=== PATIENT | female | born 1970 | race Caucasian/White ===

== ENCOUNTER 2016-08-18 13:57 | Emergency (ER) | payer OTHER, MEDICAID ==
[~2016-08-18] VITALS: Ht 162.6 cm; Wt 68.0 kg
[~2016-08-18 13:57] MED LIST: APAP/BUTALBITAL1 TA1 PO; CIPRO 500MG TA500 MG PO; FLEXERIL10 MG PO; IMITREX100 MG PO; LORTAB 10/3251 TAB PO; LORTAB 5/500 501 TAB PO; MEDROL 4MG. DOSE4 MG PO; PHENERGAN 25MG.25 M1 PO; POTASSIUM CHLO20 ME4 PO; PYRIDIUM 200MG200 MG PO
[2016-08-18 14:18] LABS: URINE BILIRUBIN - DIPSTICK SMALL (NEG)
[2016-08-18 14:19] LABS: URINE BLOOD TRACE (NEG)
[2016-08-18] MEDS ORDERED: BACTRIM DS 8001 TA1 PO (14:37)
--- NOTE | 2016-08-18 14:38 | Urgent Treatment Center Report ---
History of Present Issue Date/Time Seen by Provider 08/18/16 1421 Visit Reason Pt arrived:Walked Presenting Problem:PT C/O PAIN IN BLADDER AREA AND LOWER BACK. HAVING TROUBLE URINATING Location if Accident: Onset of symptoms date/time:/ or onset unknown for:MEDICAL HX UNKNOWN Have you (or family members/close friends) recently traveled outside the [place]? N If Yes, where/when: Have you had exposure to infectious disease within the past month? TB? Other? Specify: c/o bladder pressure, dysuria, low back pain, worsening x 2 weeks. Hasn't taken or tried anything for symptoms. Hx of UTIs and this feels similiar. Last UTI > 3 months ago. Denies fevers, + chills. Normal appetite. Denies urine odor but darker than typical. No vaginal discharge. + smoker. Source patient Exam Limitations no limitations ALLERGIES Coded Allergies: metronidazole (Severe, 01/01/16) Home Medications Reported Medications No Known Home Medications History Medical History General CAD? No Angina: No [place]: No Hypertension? No Hyperlipidemia? Yes CHF? No DVT? No PE? No COPD? No Asthma? Yes Anemia? No GERD? No Gastric ulcers? No GI Bleed? No Hernia? No Thyroid Problems? No Hypothyroidism? No CVA? No Seizures? No Diabetes? No Renal Insuffiency? No UTI? No Stones? No BPH? No GB Disease: Yes Nephritic Syndrome? No Asplenia? No Hepatitis? No Sickle Cell Disease? No Arthritis? No Migraines? No Cataracts? No Glaucoma? No MRSA? No HIV? No TB? No Anxiety? No Depression? No Cancer? No More? No Immunization HX DT/Tetanus 1-4 YRS Flu [id number] Pneumonia NEVER Surgical Hx Previous Surgery?Y TUBAL DIGANOSTIC LAP GALL BLADDER APPENDECTOMY DILATION OF URETHRA RIGHT HIP REPLACEMENT [employer] Hx LMP N/A Family History Family HX Diabetes Yes CAD Yes Hypertension Yes Hyperlipidemia Yes Cancer Yes TB No Social History Smoking Hx Smoker: Current Every Day Smoker Tobacco: Yes Type Cigarettes Packs/day < 1 Pack Alcohol Alcohol: No Review of Systems All Other Systems Reviewed and Negative Constitutional see HPI Gastrointestinal denies abdominal pain, denies diarrhea, nausea, denies vomiting Genitourinary see HPI. Physical Exam Vital Signs Vital Signs Date Time Temp Pulse Resp B/P Pulse O2 O2 Flow FiO2 Ox Delivery Rate 08/18 1439 98.8 86 16 155/80 98 08/18 1406 98.8 86 16 155/80 98 General Appearance normal appearance, no apparent distress Respiratory Status No: respiratory distress. Lung Sounds posterior: normal breath sounds. bilateral: normal breath sounds. Cardiovascular regular rate/rhythm, no murmur Gastrointestinal non tender, soft, hyperactive Back no CVA tenderness, nontender on exam, full ROM Neurologic alert Medical Decision Making LABS/Meds/Orders Pt receiving controlled substance in ED? No Results/Orders Laboratory Tests 08/18/16 1414: Urine Color YELLOW, Urine Appearance Clear, Urine pH 5.5, Ur Specific [place] 1.030, Urine Protein 30, Urine Ketones TRACE H, Urine Blood TRACE H, Urine Nitrate NEGATIVE, Urine Bilirubin SMALL, Urine Urobilinogen 0.2, Ur Leukocyte Esterase NEGATIVE, Urine Glucose NEGATIVE Orders Procedure Date/time Status [facility] URINE DIPSTICK 08/18 1414 Complete Departure Departure Time of Disposition 1428 Disposition DC Home or Self Care(routine) Clinical Impression Primary Impression: Microscopic hematuria Secondary Impressions: DYSURIA Condition STABLE Referrals ZENY VU APRN Enc to find primary care provider but in the meantime, FU [facility] in 10-14 days for repeat U/A. If hematuria remains, will plan to refer to Dr. Stout. Patient Instructions DI for Hematuria Additional Instructions Increase fluids (water, juice) Complete antibiotics even if symptoms resolve. FU immediately for new or worsening symptoms. Discussed urine cx. Pt unable to urinate again for specimen. Discharge Counseling Counseled pt/family regarding diagnosis, test results, medications/RX, home care, follow up needs Prescriptions Current Visit Scripts SULFAMETHOXAZOLE W/TRIMETHOPRI (Bactrim Ds Tab) 1 TABLET PO BID #14 TAB at 1440
--- NOTE | 2016-08-18 14:38 | Urgent Treatment Center Report ---
History of Present Issue Date/Time Seen by Provider 08/18/16 1421 Visit Reason Pt arrived:Walked Presenting Problem:PT C/O PAIN IN BLADDER AREA AND LOWER BACK. HAVING TROUBLE URINATING Location if Accident: Onset of symptoms date/time:/ or onset unknown for:MEDICAL HX UNKNOWN Have you (or family members/close friends) recently traveled outside the [place]? N If Yes, where/when: Have you had exposure to infectious disease within the past month? TB? Other? Specify: c/o bladder pressure, dysuria, low back pain, worsening x 2 weeks. Hasn't taken or tried anything for symptoms. Hx of UTIs and this feels similiar. Last UTI > 3 months ago. Denies fevers, + chills. Normal appetite. Denies urine odor but darker than typical. No vaginal discharge. + smoker. Source patient Exam Limitations no limitations ALLERGIES Coded Allergies: metronidazole (Severe, 01/01/16) Home Medications Reported Medications No Known Home Medications History Medical History General CAD? No Angina: No [place]: No Hypertension? No Hyperlipidemia? Yes CHF? No DVT? No PE? No COPD? No Asthma? Yes Anemia? No GERD? No Gastric ulcers? No GI Bleed? No Hernia? No Thyroid Problems? No Hypothyroidism? No CVA? No Seizures? No Diabetes? No Renal Insuffiency? No UTI? No Stones? No BPH? No GB Disease: Yes Nephritic Syndrome? No Asplenia? No Hepatitis? No Sickle Cell Disease? No Arthritis? No Migraines? No Cataracts? No Glaucoma? No MRSA? No HIV? No TB? No Anxiety? No Depression? No Cancer? No More? No Immunization HX DT/Tetanus 1-4 YRS Flu [id number] Pneumonia NEVER Surgical Hx Previous Surgery?Y TUBAL DIGANOSTIC LAP GALL BLADDER APPENDECTOMY DILATION OF URETHRA RIGHT HIP REPLACEMENT [employer] Hx LMP N/A Family History Family HX Diabetes Yes CAD Yes Hypertension Yes Hyperlipidemia Yes Cancer Yes TB No Social History Smoking Hx Smoker: Current Every Day Smoker Tobacco: Yes Type Cigarettes Packs/day < 1 Pack Alcohol Alcohol: No Review of Systems All Other Systems Reviewed and Negative Constitutional see HPI Gastrointestinal denies abdominal pain, denies diarrhea, nausea, denies vomiting Genitourinary see HPI. Physical Exam Vital Signs Vital Signs Date Time Temp Pulse Resp B/P Pulse O2 O2 Flow FiO2 Ox Delivery Rate 08/18 1439 98.8 86 16 155/80 98 08/18 1406 98.8 86 16 155/80 98 General Appearance normal appearance, no apparent distress Respiratory Status No: respiratory distress. Lung Sounds posterior: normal breath sounds. bilateral: normal breath sounds. Cardiovascular regular rate/rhythm, no murmur Gastrointestinal non tender, soft, hyperactive Back no CVA tenderness, nontender on exam, full ROM Neurologic alert Medical Decision Making LABS/Meds/Orders Pt receiving controlled substance in ED? No Results/Orders Laboratory Tests 08/18/16 1414: Urine Color YELLOW, Urine Appearance Clear, Urine pH 5.5, Ur Specific [place] 1.030, Urine Protein 30, Urine Ketones TRACE H, Urine Blood TRACE H, Urine Nitrate NEGATIVE, Urine Bilirubin SMALL, Urine Urobilinogen 0.2, Ur Leukocyte Esterase NEGATIVE, Urine Glucose NEGATIVE Orders Procedure Date/time Status [facility] URINE DIPSTICK 08/18 1414 Complete Departure Departure Time of Disposition 1428 Disposition DC Home or Self Care(routine) Clinical Impression Primary Impression: Microscopic hematuria Secondary Impressions: DYSURIA Condition STABLE Referrals ZENY VU APRN Enc to find primary care provider but in the meantime, FU [facility] [place] in 10-14 days for repeat U/A. If hematuria remains, will plan to refer to Dr. Stout. Patient Instructions DI for Hematuria Additional Instructions Increase fluids (water, juice) Complete antibiotics even if symptoms resolve. FU immediately for new or worsening symptoms. Discussed urine cx. Pt unable to urinate again for specimen. Discharge Counseling Counseled pt/family regarding diagnosis, test results, medications/RX, home care, follow up needs Prescriptions Current Visit Scripts SULFAMETHOXAZOLE W/TRIMETHOPRI (Bactrim Ds Tab) 1 TABLET PO BID #14 TAB at 1444
[2016-08-18 14:39] VITALS: BP 155/80
[2016-08-24] MEDS ORDERED: LAMICTAL 100 M100 MG PO (12:32)
== END 2016-08-18 14:40 | disposition home or self-care (01) ==
LOC: UTC 13:57
PROVIDERS: Nurse Practitioner Family
DX: R31.29 Other microscopic hematuria (principal); R30.0 Dysuria; Z72.0 Tobacco use

== ENCOUNTER → 2016-12-08 | Outpatient (CLI) | payer MEDICAID ==
[~2016-12-08] MED LIST changes: +BACTRIM DS 8001 TA1 PO; +LAMICTAL 100 M100 MG PO; +PYRIDIUM100 M2 PO
== END ==
LOC: LAB 10:55
DX: N89.8 Other specified noninflammatory disorders of vagina (principal)

== ENCOUNTER → 2017-06-23 | Outpatient (CLI) | payer MEDICAID ==
[~2017-06-23] MED LIST changes: +IBUPROFEN800 MG PO
== END ==
LOC: RAD 06-22 13:00
DX: R92.1 Mammographic calcification found on diagnostic imaging of breast (principal)
CPT/HCPCS: G0206-LT